=== PATIENT | male | born 1950 | race Caucasian/White ===

== ENCOUNTER 2020-02-02 06:09 | Emergency (ER) | payer MEDICARE ==
[~2020-02-02] VITALS: Ht 182.9 cm; Wt 85.5 kg
[2020-02-02] MEDS ORDERED: MORPHINE SULFATE 4 MG/ML, 1ML IVPush PRN (06:30)
[2020-02-02] MEDS ORDERED: ONDANSETRON 2MG/ML, 2ML IVPush ONE (06:30)
[2020-02-02] MEDS ORDERED: SODIUM CHLORIDE FLUSH 10ML SYR IVF ONE (06:30)
[2020-02-02] MEDS ORDERED: ASPIRIN 81 MG TABLET CHEW PO ONE (06:30)
[2020-02-02] MEDS ORDERED: ONDANSETRON 2MG/ML, 2ML ONE (06:31)
[2020-02-02] MEDS ORDERED: MORPHINE SULFATE 4 MG/ML, 1ML ONE (06:31)
[2020-02-02] MEDS ORDERED: ASPIRIN 81 MG TABLET CHEW ONE (06:31)
--- NOTE | 2020-02-02 06:46 | NUR ---
PT TO ED WITH C/O UPPER ABDOMINAL PAIN/EPIGASTRIC PAIN THAT WOKE HIM FROM SLEEP AROUND 0500. DENIES ANY RADIATION OF PAIN, NAUSEA, VOMITING, FEVER, OR RESPIRATORY SYMPTOMS. DENIES CARDAIC HX. 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
--- NOTE | 2020-02-02 06:46 | NUR ---
18 PLACED IN LAC. BLOOD DRAWN AND SENT. MEDICATIONS GIVEN PER EMAR. US TO BEDSIDE.
[2020-02-02 06:54] LABS: BASOPHILS # (AUTO) 0.03 x10^3/uL (0-0.1); BASOPHILS % (AUTO) 0 % (0-1); EOSINOPHILS % (AUTO) 2 % (1-7); LYMPHOCYTES # (AUTO) 1.91 x10^3/uL (1-3.4); LYMPHOCYTES % (AUTO) 33 % (22-44); MD NO; MEAN CORPUSCULAR HEMOGLOBIN 32.4 pg (27.5-34.5); MEAN CORPUSCULAR HGB CONC 34.4 g/dL (33.2-36.2); MEAN CORPUSCULAR VOLUME 94.2 fL (81-97); MEAN PLATELET VOLUME 7.5 fL (7.4-10.4); MONOCYTES # (AUTO) 0.55 x10^3/uL (0.2-0.8); MONOCYTES % (AUTO) 9 % (2-9); NEUTROPHILS # (AUTO) 3.28 x10^3/uL (1.8-6.8); NEUTROPHILS % (AUTO) 56 % (42-75); PLATELET COUNT 193 x10^3/uL (130-400); RED BLOOD COUNT 4.52 x10^6/uL (4.38-5.82); RED CELL DISTRIBUTION WIDTH 13.2 % (9.4-14.8)
--- NOTE | 2020-02-02 06:55 | NUR ---
REPORT TO GUILLAUME PETERSEN
--- NOTE | 2020-02-02 06:57 | NUR ---
REPORT RECEIVED FROM CULLEN PETERSEN. PT IS RESTING ON US CARLOS IN ROOM, RESP EVEN AND UNLABORED, NYA.
[2020-02-02] MEDS ORDERED: PLEASE ENTER ALLERGIES MC SCH (07:00)
[2020-02-02 07:05] LABS: ALANINE AMINOTRANSFERASE 10 U/L (12-78); ALBUMIN 3.8 g/dL (3.4-5.0); ANION GAP 6 mmol/L (5-15); CALCIUM 8.6 mg/dL (8.5-10.1); CHLORIDE 110 mmol/L (98-107)
[2020-02-02 07:09] LABS: ALKALINE PHOSPHATASE 120 U/L (45-117); BILIRUBIN,TOTAL 0.6 mg/dL (0.2-1.0); TOTAL PROTEIN 6.7 g/dL (6.4-8.2); TROPONIN I < 0.015 ng/mL (0.000-0.045)
--- NOTE | 2020-02-02 07:17 | NUR ---
ALL TESTS RESULTED. PT IS UP FOR RECHECK AT THIS TIME.
--- NOTE | 2020-02-02 08:26 | NUR ---
PT AWARE OF POC TO REPEAT TROPONIN AT 0900.
--- NOTE | 2020-02-02 09:39 | NUR ---
LAB IN ROOM FOR TROP.
[2020-02-02 10:02] LABS: TROPONIN I < 0.015 ng/mL (0.000-0.045)
[2020-02-02 10:13] VITALS: BP 112/72
== END 2020-02-02 10:32 | disposition home or self-care (01) ==
LOC: ED 10:26
DX: K80.20 Calculus of gallbladder without cholecystitis without obstruction (principal); R07.9 Chest pain, unspecified; R94.31 Abnormal electrocardiogram [ECG] [EKG]; E78.5 Hyperlipidemia, unspecified; K21.9 Gastro-esophageal reflux disease without esophagitis
CPT/HCPCS: 36415; 71045; 76700; 80053; 83690; 84484; 85025; 93005; 96374; 96375; 99285; J2270; J2405

== ENCOUNTER 2020-04-05 14:06 | Outpatient (CLI) | payer MEDICARE ==
[2020-04-05] MEDS ORDERED: FAMC500T4 PO (14:39)
[2020-04-05] MEDS ORDERED: SINEMET PO (14:39)
[2020-04-05] MEDS ORDERED: SIMV80TA18 PO (14:39)
[2020-04-05] MEDS ORDERED: SERT50TA28 PO (14:39)
[2020-04-05] MEDS ORDERED: ACET-709 PO (14:39)
== END 2020-04-05 23:59 | disposition home or self-care (01) ==
LOC: STAR 14:06
PROVIDERS: ATTEND Surgery
DX: Z02.9 Encounter for administrative examinations, unspecified (principal)